=== PATIENT | male | born 1930 | race Caucasian/White ===

== ENCOUNTER 2018-02-19 20:48 | Inpatient (IN) | payer MEDICARE, MEDICAID ==
[~2018-02-19] VITALS: Ht 177.8 cm; Wt 68.0 kg
[2018-02-19] MEDS ORDERED: ACET325T53 PO (21:27)
[2018-02-19] MEDS ORDERED: DOCU100C36 PO (21:27)
[2018-02-19] MEDS ORDERED: ASPI81TA31 PO (21:27)
[2018-02-19] MEDS ORDERED: CHOL100062 PO (21:27)
[2018-02-19] MEDS ORDERED: MAGN400O6 PO (21:27)
[2018-02-19] MEDS ORDERED: TIOT18CA3 IH (21:27)
[2018-02-19] MEDS ORDERED: FAMO-132 PO (21:27)
[2018-02-19 21:34] LABS: BASOPHILS # (AUTO) 0.1 K/uL (0.0-8.0); BASOPHILS % (AUTO) 0.8 % (0.0-2.0); EOSINOPHILS # (AUTO) 0.3 K/uL (0.0-0.7); EOSINOPHILS % (AUTO) 3.3 % (0.0-7.0); HEMATOCRIT 30.9 % (36.7-47.1); HEMOGLOBIN 10.5 g/dL (12.5-16.3); LYMPHOCYTES # (AUTO) 1.8 K/uL (20.0-40.0); LYMPHOCYTES % (AUTO) 20.1 % (20.5-51.5); MEAN CORPUSCULAR HEMOGLOBIN 32.6 uug (23.8-33.4); MEAN CORPUSCULAR HGB CONC 34 g/dL (32.5-36.3); MONOCYTES # (AUTO) 0.8 K/uL (2.0-10.0); NEUTROPHILS # (AUTO) 5.9 K/uL (1.8-8.9); NEUTROPHILS % (AUTO) 66.8 % (38.5-71.5); PLATELET COUNT (AUTO) 282 K/uL (152-348); RED BLOOD CELL COUNT(AUTO) 3.22 MIL/uL (4.06-5.63); WHITE BLOOD COUNT (AUTO) 8.8 K/uL (3.6-10.2)
[2018-02-19 21:37] LABS: CARBON DIOXIDE 28 mmol/L (21-32); CHLORIDE 101 mmol/L (98-107); CREATININE 1.8 mg/dL (0.6-1.3); ETHANOL < 3 MG/DL (0-0); GLUCOSE 223 mg/dL (74-106); POTASSIUM 4.9 mmol/L (3.5-5.1); UREA NITROGEN, BLOOD 27 mg/dL (7-18)
[2018-02-19 21:43] LABS: ALANINE AMINOTRANSFERASE 11 U/L (16-63); ALKALINE PHOSPHATASE 123 U/L (50-136); ASPARTATE AMINOTRANSFERASE 9 U/L (15-37); BILIRUBIN,DIRECT 0.1 mg/dL (0.0-0.2); BILIRUBIN,TOTAL 0.2 mg/dL (0.2-1.0); TOTAL PROTEIN, SERUM 7.6 g/dL (6.4-8.2)
[2018-02-19 21:50] LABS: THYROID STIMULATING HORMONE 4.871 mIU/mL (0.358-3.740)
--- NOTE | 2018-02-19 23:00 | NUR ---
REPORT GIVEN TO ISABELLE MACIAS.
--- NOTE | 2018-02-19 23:16 | NUR ---
Pt. admitted to [facility], under care of Dr. ALBERTS Belongs List completed
--- NOTE | 2018-02-19 23:20 | NUR ---
Received report by phone from [place]/CORPORATE LAW ASSISTANT and got pt via [employer],no family's seen at this time.Pt's A/A/O x2,unable to tell his age,kept saying "I'm 65 years old".pt denied of any medical Hx and stated that"I have no emergency contact";per medical record;pt's a resident of [facility](pt's agitation and aggressive behavior at SNF. Pt had a conservator(David Segovia);per charge nurse stated that will endorse to AM shift to contact. Upon this time;pt's cooperative w/instruction,no combative was seen.Initial assessment's done and notified MD;carried out orders.safety render.assisted pt to change diaper,educated to pt in order to get urine exam,pt denied to give at this time and stated that"I want to sleep",kept comfort.continued monitoring to pt.bed alarm's on.
[2018-02-19] MEDS ORDERED: MAGNESIUM HYDROXIDE 30 ML LIQUID UDC PO PRN (23:30)
[2018-02-19] MEDS ORDERED: ACETAMINOPHEN 325 MG TABLET PO PRN (23:30)
[2018-02-19] MEDS ORDERED: CLONAZEPAM 0.5 MG TABLET PO SCH (23:30)
[2018-02-19] MEDS ORDERED: MAG HYDROX/AL HYDROX/SIMETH 30 ML LIQUID UDC PO PRN (23:30)
[2018-02-19] MEDS ORDERED: TEMAZEPAM 7.5 MG CAPSULE PO PRN (23:30)
[2018-02-19 23:45] VITALS: BP 112/64
[2018-02-19] MEDS ORDERED: IPRATROPIUM BROMIDE 0.5 MG/2.5 ML NEBU NEB PRN (23:45)
[2018-02-19] MEDS ORDERED: ALBUTEROL SULFATE 2.5 MG/3 ML NEBU NEB PRN (23:45)
[2018-02-20] MEDS ORDERED: MAG HYDROX/AL HYDROX/SIMETH 30 ML LIQUID UDC PO PRN (00:15)
[2018-02-20] MEDS ORDERED: ACETAMINOPHEN 325 MG TABLET PO PRN (00:15)
[2018-02-20] MEDS ORDERED: TEMAZEPAM 7.5 MG CAPSULE PO PRN (00:15)
[2018-02-20] MEDS ORDERED: MAGNESIUM HYDROXIDE 30 ML LIQUID UDC PO PRN (00:15)
[2018-02-20] MEDS ORDERED: LORAZEPAM 0.5 MG TABLET PO PRN (00:15)
--- NOTE | 2018-02-20 06:30 | NUR ---
Pt's comfortable on bed;denied of pain or any discomfort,he's able to sleep for 4.3 hours (since admission).no distress noted in the shift,pt remained free from injury and no aggressive or combative's seen.bed alarm's on.continued monitoring to pt.
[2018-02-20 07:00] LABS: BASOPHILS # (AUTO) 0.1 K/uL (0.0-8.0); BASOPHILS % (AUTO) 1.3 % (0.0-2.0); EOSINOPHILS # (AUTO) 0.4 K/uL (0.0-0.7); EOSINOPHILS % (AUTO) 5.6 % (0.0-7.0); HEMATOCRIT 31.4 % (36.7-47.1); HEMOGLOBIN 10.7 g/dL (12.5-16.3); LYMPHOCYTES # (AUTO) 1.8 K/uL (20.0-40.0); LYMPHOCYTES % (AUTO) 23.8 % (20.5-51.5); MEAN CORPUSCULAR HEMOGLOBIN 32.3 uug (23.8-33.4); MEAN CORPUSCULAR HGB CONC 34 g/dL (32.5-36.3); MONOCYTES # (AUTO) 0.8 K/uL (2.0-10.0); NEUTROPHILS # (AUTO) 4.5 K/uL (1.8-8.9); NEUTROPHILS % (AUTO) 59.3 % (38.5-71.5); PLATELET COUNT (AUTO) 269 K/uL (152-348); RED BLOOD CELL COUNT(AUTO) 3.31 MIL/uL (4.06-5.63); WHITE BLOOD COUNT (AUTO) 7.6 K/uL (3.6-10.2)
[2018-02-20 07:30] VITALS: BP 127/49
[2018-02-20 07:43] LABS: THYROID STIMULATING HORMONE 4.523 mIU/mL (0.358-3.740)
[2018-02-20 08:05] LABS: IRON, SERUM 45 ug/dL (50-175)
[2018-02-20] MEDS: DOCUSATE SODIUM 100 MG CAPSULE PO SCH (08:05)
[2018-02-20] MEDS: ASPIRIN 81 MG TAB.CHEW PO SCH (08:05)
[2018-02-20] MEDS: FAMOTIDINE 20 MG TABLET PO SCH (08:05)
[2018-02-20] MEDS: CHOLECALCIFEROL 1,000 UNIT TABLET PO SCH (08:05)
[2018-02-20 08:32] LABS: ALANINE AMINOTRANSFERASE 9 U/L (16-63); ALKALINE PHOSPHATASE 106 U/L (50-136); ASPARTATE AMINOTRANSFERASE 11 U/L (15-37); BILIRUBIN,TOTAL 0.3 mg/dL (0.2-1.0); CARBON DIOXIDE 28 mmol/L (21-32); CHLORIDE 105 mmol/L (98-107); CHOLESTEROL 201 mg/dL (<200); CREATININE 1.7 mg/dL (0.6-1.3); GLUCOSE 126 mg/dL (74-106); GLUCOSE FASTING 126 mg/dL (70-115); HDL CHOLESTEROL 50 mg/dL (40-60); MAGNESIUM 1.9 mg/dL (1.8-2.4); PHOSPHOROUS 2.9 mg/dL (2.5-4.9); POTASSIUM 4.7 mmol/L (3.5-5.1); TRIGLYCERIDES 86 MG/DL (30-150); UREA NITROGEN, BLOOD 23 mg/dL (7-18)
[2018-02-20] MEDS ORDERED: DEXTROSE 50% 50 ML DISP.SYRIN IV PRN (10:15)
[2018-02-20] MEDS: BLOOD SUGAR DIAGNOSTIC 1 EACH STRIP VI SCH ×3 (10:35→21:00)
[2018-02-20] MEDS: INSULIN REGULAR, HUMAN 300 UNIT/3 ML VIAL SQ PRN (11:04)
--- NOTE | 2018-02-20 12:00 | NUR ---
Firearms Report: GAUDENCIO completed and submitted [facility] Firearms Report on 02/20/18
[2018-02-20 15:02] VITALS: BP 78/50
[2018-02-20 15:30] VITALS: BP 97/52
[2018-02-20 20:00] VITALS: BP 122/72
[2018-02-20] MEDS: DIVALPROEX ER 250 MG TAB.SR.24H PO SCH (20:58)
[2018-02-20] MEDS: ATORVASTATIN 20 MG TABLET PO SCH (21:00)
--- NOTE | 2018-02-20 21:15 | NUR ---
Pt REFUSED ACCU CHECK AND ALL HS MEDICATIONS. Pt NOT RECEPTIVE TO TEACHING AT THIS TIME. Pt IS HOSTILE, LABILE, AGITATED, ANGRY, AND VERBALLY ABUSIVE TOWARD STAFF. HELP DESK CONSULTANT AWARE.
[2018-02-20 22:25] LABS: *AMPHETAMINE, URINE NEGATIVE (NEGATIVE); *BARBITURATE, URINE NEGATIVE (NEGATIVE); *CANNABINOID, URINE NEGATIVE (NEGATIVE); *COCCAINE, URINE NEGATIVE (NEGATIVE); *OPIATE, URINE NEGATIVE (NEGATIVE); *PHENCYCLIDINE SCREEN,URINE NEGATIVE (NEGATIVE)
[2018-02-20 22:28] LABS: *BILIRUBIN,URIN NEGATIVE (NEGATIVE); *BLOOD, URINE 1+ (NEGATIVE); *CLARITY,URINE CLEAR (CLEAR); *COLOR,URINE YELLOW (YELLOW); *KETONES,URINE NEGATIVE (NEGATIVE); *PROTEIN,URINE TRACE (NEGATIVE); *UROBILINOGEN,URINE 0.2 E.U./dl (NORMAL); LEUKOCYTE ESTERASE ,URINE NEGATIVE (NEGATIVE); NITRITE, URINE NEGATIVE (NEGATIVE); UGLUCOSE NEGATIVE (NEGATIVE)
[2018-02-20 22:48] LABS: BACTERIA,URINE NONE SEEN /HPF (NONE SEEN); MUCUS,URINE FEW /LPF (0-FEW); SQUAMOUS EPITHELIAL CELL,UR FEW /HPF (NONE SEEN); WBC,URINE 0-3 /HPF (0-3)
--- NOTE | 2018-02-21 06:59 | NUR ---
RECEIVED Pt AWAKE IN BED, Pt IMMEDIATELY BEGAN YELLING AT THIS SEWING TEACHER UPON ENTERING HIS GOOM. Pt WAS ANGRY, AGITATED, LABILE, AGGRESSIVE, AND VERBALLY ABUSIVE TO STAFF. Pt YELLED TO GET THE FUCK OUT OF MY ROOM YOU BITCH AND IM NOT TAKING ANYTHING FROM YOU WHEN MEDICATION WAS OFFERED, APPEARS PARANOID AND SUSPICIOUS OF STAFF AND MEDICATIONS. PRESENTS DISORIENTED, DISORGANIZED, AND CONFUSED. Pt WAS MUCH BRIGHTER THIS MORNING, AND POLITE, AGREEABLE TO HAVE HIS BOOLD GLUCOSE CHECKED, [address] DUKE NOTIFIED ABOUT ELEVATED TSH, WILL ENDORSE TO DAY SHIFT. VS STABLE, NO C/O PAIN. SLEPT 5.45 HOURS.
[2018-02-21] MEDS: BLOOD SUGAR DIAGNOSTIC 1 EACH STRIP VI SCH ×4 (07:04→20:09)
[2018-02-21 07:30] VITALS: BP 106/56
[2018-02-21] MEDS: ASPIRIN 81 MG TAB.CHEW PO SCH (09:01)
[2018-02-21] MEDS: DOCUSATE SODIUM 100 MG CAPSULE PO SCH (09:01)
[2018-02-21] MEDS: FAMOTIDINE 20 MG TABLET PO SCH (09:01)
[2018-02-21] MEDS: CHOLECALCIFEROL 1,000 UNIT TABLET PO SCH (09:02)
[2018-02-21] MEDS ORDERED: QUETIAPINE FUMARATE 25 MG TABLET PO PRN (11:00)
[2018-02-21] MEDS: INSULIN REGULAR, HUMAN 300 UNIT/3 ML VIAL SQ PRN (12:30)
--- NOTE | 2018-02-21 14:04 | NUR ---
Social Work Discharge Note: Nancy MEDIA RELATIONS MANAGER exercise science internship spoke with Rhiannon at [facility] [phone]. She is reluctant to accept pt. back. Bedhold expires on 02/26/18. company laundry worker may try to find alternative skilled placement but if she is not successful, [place] need to comply with state guidelines and accept pt. back. Message was left for public guardian Luisito Segovia [phone] at 1.30 pm. Kate santana MSW will follow up on her return.
[2018-02-21 15:03] VITALS: BP 103/50
[2018-02-21 20:00] VITALS: BP 144/68
[2018-02-21] MEDS: ATORVASTATIN 20 MG TABLET PO SCH (20:09)
[2018-02-21] MEDS: DIVALPROEX ER 250 MG TAB.SR.24H PO SCH (20:09)
[2018-02-21] MEDS: INSULIN REGULAR, HUMAN 300 UNITS/3 ML VIAL SQ PRN (20:11)
[2018-02-21] MEDS ORDERED: QUETIAPINE FUMARATE 25 MG TABLET PO SCH (21:00)
[2018-02-22] MEDS: BLOOD SUGAR DIAGNOSTIC 1 EACH STRIP VI SCH ×4 (06:42→21:04)
--- NOTE | 2018-02-22 06:42 | NUR ---
Pt REMAINS EXTREMELY LABILE AND AGGRESSIVE. SECURITY WAS CALLED SO STAFF COULD PERFORM ADLs. Pt POSTURES, ATTEMPTS TO STRIKE OUT, IS YELLING AND VERBALLY ABUSIVE. RESISTANT TO CARE, HOSTILE, AND UNPREDICTABLE. UNCOOPERATIVE WITH STAFF DIRECTION, REFUSES REDIRECTION. Pt CURRENTLY STANDING IN THE HALLWAY YELLING AND SCREAMING. UNABLE TO REDIRECT. WILL CONTINUE TO CLOSELY MONITOR. REQUIRES EXTENSIVE PROMPTING FOR MEDICATION COMPLIANCE. SHOWER GIVEN WITH ALL STAFF PRESENT. AM BG 97. SLEPT 8 HOURS.
[2018-02-22 07:30] VITALS: BP 110/65
[2018-02-22 07:59] LABS: BASOPHILS # (AUTO) 0.1 K/uL (0.0-8.0); BASOPHILS % (AUTO) 0.8 % (0.0-2.0); EOSINOPHILS # (AUTO) 0.5 K/uL (0.0-0.7); EOSINOPHILS % (AUTO) 4.9 % (0.0-7.0); HEMATOCRIT 33.7 % (36.7-47.1); HEMOGLOBIN 11.4 g/dL (12.5-16.3); LYMPHOCYTES # (AUTO) 1.7 K/uL (20.0-40.0); LYMPHOCYTES % (AUTO) 18.4 % (20.5-51.5); MEAN CORPUSCULAR HEMOGLOBIN 32.3 uug (23.8-33.4); MEAN CORPUSCULAR HGB CONC 34 g/dL (32.5-36.3); MEAN CORPUSCULAR VOLUME 95.8 fL (73.0-96.2); MONOCYTES # (AUTO) 0.9 K/uL (2.0-10.0); MONOCYTES % (AUTO) 9.4 % (0.0-11.0); NEUTROPHILS # (AUTO) 6.3 K/uL (1.8-8.9); NEUTROPHILS % (AUTO) 66.5 % (38.5-71.5); PLATELET COUNT (AUTO) 302 K/uL (152-348); RED BLOOD CELL COUNT(AUTO) 3.52 MIL/uL (4.06-5.63); WHITE BLOOD COUNT (AUTO) 9.4 K/uL (3.6-10.2)
[2018-02-22] MEDS: CHOLECALCIFEROL 1,000 UNIT TABLET PO SCH ×2 (08:08→10:00)
[2018-02-22] MEDS: DOCUSATE SODIUM 100 MG CAPSULE PO SCH ×2 (08:08→09:00)
[2018-02-22] MEDS: ASPIRIN 81 MG TAB.CHEW PO SCH ×2 (08:08→09:00)
[2018-02-22] MEDS: FAMOTIDINE 20 MG TABLET PO SCH ×2 (08:08→09:00)
[2018-02-22 08:18] LABS: ALANINE AMINOTRANSFERASE 11 U/L (16-63); ALKALINE PHOSPHATASE 111 U/L (50-136); ASPARTATE AMINOTRANSFERASE 13 U/L (15-37); BILIRUBIN,TOTAL 0.4 mg/dL (0.2-1.0); CARBON DIOXIDE 26 mmol/L (21-32); CHLORIDE 103 mmol/L (98-107); CREATININE 1.9 mg/dL (0.6-1.3); GLUCOSE 159 mg/dL (74-106); MAGNESIUM 1.9 mg/dL (1.8-2.4); PHOSPHOROUS 3.8 mg/dL (2.5-4.9); POTASSIUM 5.6 mmol/L (3.5-5.1); TOTAL PROTEIN, SERUM 7.9 g/dL (6.4-8.2); UREA NITROGEN, BLOOD 34 mg/dL (7-18)
--- NOTE | 2018-02-22 10:00 | NUR ---
Pt refused morning medications. Attempted x3 but continued to refuse. Pt stated "get out of here with that" repeatedly with each attempts. Explained risks and benefits of medication compliance however pt became more agitated. Will continue to monitor.
[2018-02-22] MEDS: INSULIN REGULAR, HUMAN 300 UNIT/3 ML VIAL SQ PRN ×2 (11:53→17:23)
--- NOTE | 2018-02-22 12:13 | NUR ---
Initial Discharge Plan: Pts address on face sheet is [address] [place] [address] and telephone # is . Per information found on 5150 report pt is a resident of [facility], [address] [place] [phone]; . SW contacted [facility] and spoke to Rhiannon from admissions who would prefer pt not return to facility "because he is a danger to others and is aggressive." Per Rhiannon, pt has a "bed hold" until the 9th of this month. SW will follow up with treating team, including pts Guardian, David Segovia in order to discharge pt appropriately. SW will help form a safe and proper discharge.
--- NOTE | 2018-02-22 12:26 | NUR ---
Discharge Planning: GAUDENCIO spoke to pts Guardian, David Segovia who stated that he faxed "letters of conservatorship" to fax # per [facility] request. Mr. Segovia also stated that he was asked to fax "consent for medical treatment" paperwork as well. SW will follow up to ensure all appropriate paperwork is received in a timely manner.
--- NOTE | 2018-02-22 15:11 | NUR ---
Gps/Medical Cost Consultant- Ambulates around with front wheel walker, safety reviewed and emphasized, monitor needs, Labile mood, conversant, making needs known to staff, needed prompting and constant redirections,
[2018-02-22 16:09] VITALS: BP 137/61
[2018-02-22 19:33] VITALS: BP 134/68
[2018-02-22] MEDS ORDERED: DIVALPROEX ER 250 MG TAB.SR.24H PO SCH (20:00)
[2018-02-22] MEDS: ATORVASTATIN 20 MG TABLET PO SCH (21:03)
[2018-02-22] MEDS: DIVALPROEX ER 500 MG TAB.SR.24H PO SCH (21:03)
[2018-02-22] MEDS: INSULIN REGULAR, HUMAN 300 UNITS/3 ML VIAL SQ PRN (21:05)
[2018-02-22] MEDS ORDERED: QUETIAPINE FUMARATE 25 MG TABLET PO SCH (22:00)
[2018-02-23] MEDS: BLOOD SUGAR DIAGNOSTIC 1 EACH STRIP VI SCH ×4 (06:45→21:00)
[2018-02-23 07:54] VITALS: BP 98/55
[2018-02-23] MEDS: ASPIRIN 81 MG TAB.CHEW PO SCH ×2 (08:45→08:56)
[2018-02-23] MEDS: CHOLECALCIFEROL 1,000 UNIT TABLET PO SCH ×2 (08:45→08:56)
[2018-02-23] MEDS: FAMOTIDINE 20 MG TABLET PO SCH ×2 (08:45→08:56)
[2018-02-23] MEDS: DOCUSATE SODIUM 100 MG CAPSULE PO SCH ×2 (08:45→08:56)
[2018-02-23] MEDS: INSULIN REGULAR, HUMAN 300 UNIT/3 ML VIAL SQ PRN ×3 (08:47→12:33)
--- NOTE | 2018-02-23 08:58 | NUR ---
PATIENT REFUSED ALL MEDS, INCLUDING INSULIN. WASTED IN PYXIS
[2018-02-23 09:21] LABS: ALANINE AMINOTRANSFERASE 12 U/L (16-63); ALKALINE PHOSPHATASE 119 U/L (50-136); ASPARTATE AMINOTRANSFERASE 9 U/L (15-37); BILIRUBIN,TOTAL 0.3 mg/dL (0.2-1.0); CARBON DIOXIDE 26 mmol/L (21-32); CHLORIDE 100 mmol/L (98-107); CREATININE 2.1 mg/dL (0.6-1.3); GLUCOSE 266 mg/dL (74-106); MAGNESIUM 1.7 mg/dL (1.8-2.4); PHOSPHOROUS 2.9 mg/dL (2.5-4.9); POTASSIUM 4.6 mmol/L (3.5-5.1); TOTAL PROTEIN, SERUM 7.8 g/dL (6.4-8.2); UREA NITROGEN, BLOOD 41 mg/dL (7-18)
[2018-02-23 09:37] LABS: BASOPHILS # (AUTO) 0.1 K/uL (0.0-8.0); BASOPHILS % (AUTO) 0.6 % (0.0-2.0); EOSINOPHILS # (AUTO) 0.4 K/uL (0.0-0.7); EOSINOPHILS % (AUTO) 2.8 % (0.0-7.0); HEMOGLOBIN 11.3 g/dL (12.5-16.3); LYMPHOCYTES # (AUTO) 1.3 K/uL (20.0-40.0); LYMPHOCYTES % (AUTO) 9.5 % (20.5-51.5); MEAN CORPUSCULAR HEMOGLOBIN 32.9 uug (23.8-33.4); MEAN CORPUSCULAR HGB CONC 34 g/dL (32.5-36.3); MEAN CORPUSCULAR VOLUME 96.2 fL (73.0-96.2); MONOCYTES # (AUTO) 1.2 K/uL (2.0-10.0); MONOCYTES % (AUTO) 8.8 % (0.0-11.0); NEUTROPHILS # (AUTO) 10.7 K/uL (1.8-8.9); NEUTROPHILS % (AUTO) 78.3 % (38.5-71.5); PLATELET COUNT (AUTO) 307 K/uL (152-348); RED BLOOD CELL COUNT(AUTO) 3.43 MIL/uL (4.06-5.63)
[2018-02-23 09:44] LABS: WHITE BLOOD COUNT (AUTO) 13.7 K/uL (3.6-10.2)
[2018-02-23] MEDS ORDERED: MAGNESIUM OXIDE 400 MG TABLET PO ONE (10:45)
--- NOTE | 2018-02-23 15:15 | NUR ---
paged mirella warren, awaiting reply in regards of the elevated wbc
--- NOTE | 2018-02-23 15:17 | NUR ---
discharge note: PT IS READY TO BE D/C. PT IS CALM AND COOPERATIVE. ALL SAFETY NEEDS ARE MET. PT IS CALM AND DENIES ANY HALLUCINATIONS. PT IS BEING D/C WITH DAUGHTER VIA PRIVATE CAR, BELONGINGS ARE GIVEN TO THE PT. PRESCRIPTIONS GIVEN TO PT. ALL SAFETY NEESD ARE MET. Addendum: 02/23/18 at 1653 by [facility] NURSEJONNA CHARTED IN A WRONG PATIENT.
[2018-02-23 15:53] VITALS: BP 98/53
[2018-02-23] MEDS: QUETIAPINE FUMARATE 25 MG TABLET PO SCH ×2 (17:00→21:49)
[2018-02-23] MEDS: DIVALPROEX ER 500 MG TAB.SR.24H PO SCH (20:49)
[2018-02-23] MEDS: ATORVASTATIN 20 MG TABLET PO SCH (20:49)
[2018-02-23] MEDS: INSULIN GLARGINE,HUM 300 UNITS/3 ML CARTRIDGE SQ SCH (21:00)
[2018-02-23 21:51] VITALS: BP 129/72
[2018-02-24] MEDS: BLOOD SUGAR DIAGNOSTIC 1 EACH STRIP VI SCH ×4 (06:55→21:56)
[2018-02-24 07:09] LABS: BASOPHILS # (AUTO) 0.1 K/uL (0.0-8.0); BASOPHILS % (AUTO) 0.5 % (0.0-2.0); EOSINOPHILS # (AUTO) 0.4 K/uL (0.0-0.7); EOSINOPHILS % (AUTO) 3.7 % (0.0-7.0); HEMATOCRIT 31.3 % (36.7-47.1); HEMOGLOBIN 10.6 g/dL (12.5-16.3); LYMPHOCYTES # (AUTO) 2.2 K/uL (20.0-40.0); LYMPHOCYTES % (AUTO) 22.9 % (20.5-51.5); MEAN CORPUSCULAR HEMOGLOBIN 31.9 uug (23.8-33.4); MEAN CORPUSCULAR HGB CONC 34 g/dL (32.5-36.3); MEAN CORPUSCULAR VOLUME 94.6 fL (73.0-96.2); MONOCYTES % (AUTO) 10.3 % (0.0-11.0); NEUTROPHILS % (AUTO) 62.6 % (38.5-71.5); PLATELET COUNT (AUTO) 277 K/uL (152-348); RED BLOOD CELL COUNT(AUTO) 3.31 MIL/uL (4.06-5.63); WHITE BLOOD COUNT (AUTO) 9.7 K/uL (3.6-10.2)
[2018-02-24 07:39] LABS: CARBON DIOXIDE 23 mmol/L (21-32); CHLORIDE 102 mmol/L (98-107); CREATININE 1.8 mg/dL (0.6-1.3); GLUCOSE 109 mg/dL (74-106); MAGNESIUM 1.9 mg/dL (1.8-2.4); POTASSIUM 4.2 mmol/L (3.5-5.1); UREA NITROGEN, BLOOD 44 mg/dL (7-18)
[2018-02-24 07:55] VITALS: BP 126/59
[2018-02-24] MEDS: ASPIRIN 81 MG TAB.CHEW PO SCH (08:53)
[2018-02-24] MEDS: CHOLECALCIFEROL 1,000 UNIT TABLET PO SCH (08:53)
[2018-02-24] MEDS: QUETIAPINE FUMARATE 25 MG TABLET PO SCH ×3 (08:53→21:52)
[2018-02-24] MEDS: DOCUSATE SODIUM 100 MG CAPSULE PO SCH (08:53)
[2018-02-24] MEDS: FAMOTIDINE 20 MG TABLET PO SCH (08:53)
[2018-02-24 15:38] VITALS: BP 133/53
[2018-02-24] MEDS: INSULIN REGULAR, HUMAN 300 UNIT/3 ML VIAL SQ PRN (16:49)
[2018-02-24 20:00] VITALS: BP 131/53
[2018-02-24] MEDS: ATORVASTATIN 20 MG TABLET PO SCH (21:52)
[2018-02-24] MEDS: DIVALPROEX ER 500 MG TAB.SR.24H PO SCH (21:53)
[2018-02-24] MEDS: INSULIN GLARGINE,HUM 300 UNITS/3 ML CARTRIDGE SQ SCH (21:56)
--- NOTE | 2018-02-25 05:57 | NUR ---
PATIENT SLEPT THROUGH NIGHT A TOTAL OF SEVEN AND A HALF HOURS WITHOUT SIGNS OF DISTRESS. CONTINUE TO MONITOR FOR SAFETY.
[2018-02-25] MEDS: BLOOD SUGAR DIAGNOSTIC 1 EACH STRIP VI SCH ×4 (06:42→20:22)
[2018-02-25 08:26] VITALS: BP 104/62
[2018-02-25] MEDS: ASPIRIN 81 MG TAB.CHEW PO SCH (08:41)
[2018-02-25] MEDS: FAMOTIDINE 20 MG TABLET PO SCH (08:41)
[2018-02-25] MEDS: QUETIAPINE FUMARATE 25 MG TABLET PO SCH ×3 (08:41→21:18)
[2018-02-25] MEDS: CHOLECALCIFEROL 1,000 UNIT TABLET PO SCH (08:41)
[2018-02-25] MEDS: DOCUSATE SODIUM 100 MG CAPSULE PO SCH (08:41)
[2018-02-25] MEDS: CEPHALEXIN MONOHYDRATE 250 MG CAPSULE PO SCH ×2 (15:47→22:00)
[2018-02-25 16:32] VITALS: BP 107/57
[2018-02-25] MEDS: INSULIN REGULAR, HUMAN 300 UNIT/3 ML VIAL SQ PRN (16:44)
[2018-02-25 20:00] VITALS: BP 136/73
[2018-02-25] MEDS: ATORVASTATIN 20 MG TABLET PO SCH (20:22)
[2018-02-25] MEDS: DIVALPROEX ER 500 MG TAB.SR.24H PO SCH (20:22)
[2018-02-25] MEDS: INSULIN REGULAR, HUMAN 300 UNITS/3 ML VIAL SQ PRN (20:29)
[2018-02-25] MEDS: INSULIN GLARGINE,HUM 300 UNITS/3 ML CARTRIDGE SQ SCH (20:30)
--- NOTE | 2018-02-25 20:30 | NUR ---
RECEIVED PATIENT IN THE HALLWAY AMBULATING WITH THE AID OF A FW WALKER. HE IS NOTED A/O X 2. EASILY IRRITABLE, YELLING AT TIMES; HE DENIES SI. HE IS ABLE TO COMPLY WITH MEDICATION REGIMENT AT THIS TIME. SAFETY EMPHASIS. WILL CONTINUE TO MONITOR.
[2018-02-25] MEDS ORDERED: CEPHALEXIN MONOHYDRATE 250 MG CAPSULE ONE (21:51)
--- NOTE | 2018-02-25 23:00 | NUR ---
PATIENT REFUSED KEFLEX 250MG PO. HE STATED, "I DON'T NEED IT, TAKE IT AWAY FROM ME." MULTIPLE REDIRECTION GIVEN, HOWEVER, INEFFECTIVE. WILL CONTINUE TO MONITOR.
[2018-02-26] MEDS: CEPHALEXIN MONOHYDRATE 250 MG CAPSULE PO SCH ×3 (06:26→21:04)
[2018-02-26] MEDS: BLOOD SUGAR DIAGNOSTIC 1 EACH STRIP VI SCH ×4 (06:33→20:55)
--- NOTE | 2018-02-26 07:30 | NUR ---
PATIENT INITIAL BGL THIS AM WAS 65. ORANGE JUICE WAS GIVEN AT APROX 6:45 AM. ATTEMPTED TO RECHECK BGL; HOWEVER, PATIENT REFUSED. MULTIPLE REDIRECTION GIVEN, YET INEFFECTIVE. WILL CONTINUE TO MONITOR.
[2018-02-26] MEDS: QUETIAPINE FUMARATE 25 MG TABLET PO SCH ×3 (10:16→21:04)
[2018-02-26] MEDS: ASPIRIN 81 MG TAB.CHEW PO SCH (10:16)
[2018-02-26] MEDS: CHOLECALCIFEROL 1,000 UNIT TABLET PO SCH (10:16)
[2018-02-26] MEDS: DOCUSATE SODIUM 100 MG CAPSULE PO SCH (10:16)
[2018-02-26] MEDS: FAMOTIDINE 20 MG TABLET PO SCH (10:16)
[2018-02-26 15:38] VITALS: BP 136/69
[2018-02-26] MEDS: DIVALPROEX 125 MG TABLET.DR PO SCH (15:48)
[2018-02-26] MEDS: INSULIN REGULAR, HUMAN 300 UNIT/3 ML VIAL SQ PRN (17:22)
[2018-02-26 20:44] VITALS: BP 153/78
[2018-02-26] MEDS: ATORVASTATIN 20 MG TABLET PO SCH (20:47)
[2018-02-26] MEDS: DIVALPROEX ER 500 MG TAB.SR.24H PO SCH (20:47)
[2018-02-26] MEDS: INSULIN REGULAR, HUMAN 300 UNITS/3 ML VIAL SQ PRN (20:57)
[2018-02-26] MEDS: INSULIN GLARGINE,HUM 300 UNITS/3 ML CARTRIDGE SQ SCH (20:57)
--- NOTE | 2018-02-26 22:00 | NUR ---
NURSING NOTE:A/O X2.ANXIOUS,RESTLESS,EASILY IRRITABLE AND ARGUMENTATIVE.TOOK PO HS MEDS WITH PROMPTING ACCUCHECK @ HS=58/59 MG/DL,HS SNACKS-TURKEY SANDWICHES,JUICE WITH SUGAR ADDED AND PUDDING WERE GIVEN.BUT PT REFUSED TO REPEAT/RECHECK ANOTHER ACCUCHECK-REGULAR INSULIN SS & LANTUS SQ HELD. .RESISTIVE WITH CARE-WAS SOAKING WET BUT DIDN'T WANT TO BE CHANGED,YELLED AND SCREAMED @ STAFF.SL.[place].WILL CONTINUE TO MONITOR.
[2018-02-27] MEDS: BLOOD SUGAR DIAGNOSTIC 1 EACH STRIP VI SCH ×4 (06:33→20:05)
[2018-02-27] MEDS: CEPHALEXIN MONOHYDRATE 250 MG CAPSULE PO SCH ×3 (06:33→21:02)
[2018-02-27] MEDS: DOCUSATE SODIUM 100 MG CAPSULE PO SCH (09:09)
[2018-02-27] MEDS: QUETIAPINE FUMARATE 25 MG TABLET PO SCH ×3 (09:10→21:02)
[2018-02-27] MEDS: FAMOTIDINE 20 MG TABLET PO SCH (09:10)
[2018-02-27] MEDS: DIVALPROEX 125 MG TABLET.DR PO SCH (09:10)
[2018-02-27] MEDS: ASPIRIN 81 MG TAB.CHEW PO SCH (09:11)
[2018-02-27] MEDS: CHOLECALCIFEROL 1,000 UNIT TABLET PO SCH (09:11)
[2018-02-27] MEDS: GLIMEPIRIDE 2 MG TABLET PO SCH (09:11)
--- NOTE | 2018-02-27 14:05 | NUR ---
Discharge Planning Note: GAUDENCIO spoke with patient's public guardian David Segovia [[phone]] to inform him that patient has been accepted at [facility] [ ]. David stated that he is agreeable to having patient go to [facility] upon discharge.
[2018-02-27 15:27] VITALS: BP 102/52
[2018-02-27 19:42] VITALS: BP 128/67
[2018-02-27] MEDS: ATORVASTATIN 20 MG TABLET PO SCH (20:05)
[2018-02-27] MEDS: DIVALPROEX ER 500 MG TAB.SR.24H PO SCH (20:05)
--- NOTE | 2018-02-27 21:00 | NUR ---
PATIENT IS NOTED A/O X 2. HE IS ABLE TO MAKE HIS NEEDS KNOWN AND ABLE TO AMBULATE WITH THE AID OF A FWW. HOWEVER, HE IS RESISTANCE TO USE THE FWW. SAFETY WAS EMPHASIS. HE IS NOTED EASILY IRRITABLE WHEN REDIRECTION GIVEN. LABILE MOOD, BLUNTED AFFECT NOTED. HE IS ABLE TO COMPLY WITH MEDICATION REGIMENT AT THIS TIME. SAFETY EMPHASIS TO USE HIS WALKER WHEN AMBULATING.
[2018-02-28] MEDS: CEPHALEXIN MONOHYDRATE 250 MG CAPSULE PO SCH ×3 (06:00→21:31)
[2018-02-28] MEDS: BLOOD SUGAR DIAGNOSTIC 1 EACH STRIP VI SCH ×4 (07:22→20:01)
[2018-02-28 07:30] VITALS: BP 146/65
[2018-02-28] MEDS: FAMOTIDINE 20 MG TABLET PO SCH (10:41)
[2018-02-28] MEDS: DIVALPROEX 125 MG TABLET.DR PO SCH (10:42)
[2018-02-28] MEDS: CHOLECALCIFEROL 1,000 UNIT TABLET PO SCH (10:42)
[2018-02-28] MEDS: DOCUSATE SODIUM 100 MG CAPSULE PO SCH (10:42)
[2018-02-28] MEDS: ASPIRIN 81 MG TAB.CHEW PO SCH (10:43)
[2018-02-28] MEDS: QUETIAPINE FUMARATE 25 MG TABLET PO SCH ×3 (10:43→21:32)
[2018-02-28] MEDS: GLIMEPIRIDE 2 MG TABLET PO SCH (10:44)
[2018-02-28 14:41] VITALS: BP 115/57
[2018-02-28] MEDS: DIVALPROEX ER 500 MG TAB.SR.24H PO SCH (20:01)
[2018-02-28] MEDS: ATORVASTATIN 20 MG TABLET PO SCH (20:01)
--- NOTE | 2018-02-28 20:30 | NUR ---
PATIENT IS NOTED A/O X 2. HE IS ABLE TO MAKE HIS NEEDS KNOWN AND ABLE TO AMBULATE WITH SLOW BUT STEADY GAIT WITH THE AID OF A FWW. PT IS NOTED EASILY IRRITABLE, PRESSURE SPEECH, LABILE MOOD, BLUNTED AFFECT NOTED. HE IS ABLE TO COMPLY WITH MEDICATION REGIMENT AT THIS TIME. SAFETY EMPHASIS TO CONTINUE USING HIS WALKER WHEN AMBULATING. WILL CONTINUE TO MONITOR CLOSELY.
[2018-02-28 21:44] VITALS: BP 127/65
[2018-03-01] MEDS: CEPHALEXIN MONOHYDRATE 250 MG CAPSULE PO SCH ×2 (06:43→13:46)
[2018-03-01] MEDS: BLOOD SUGAR DIAGNOSTIC 1 EACH STRIP VI SCH ×2 (06:49→11:34)
[2018-03-01 07:30] VITALS: BP 128/69
[2018-03-01] MEDS: INSULIN REGULAR, HUMAN 300 UNIT/3 ML VIAL SQ PRN ×2 (08:18→11:34)
[2018-03-01] MEDS: DIVALPROEX 125 MG TABLET.DR PO SCH (08:20)
[2018-03-01] MEDS: ASPIRIN 81 MG TAB.CHEW PO SCH (08:20)
[2018-03-01] MEDS: DOCUSATE SODIUM 100 MG CAPSULE PO SCH (08:20)
[2018-03-01] MEDS: FAMOTIDINE 20 MG TABLET PO SCH (08:20)
[2018-03-01] MEDS: CHOLECALCIFEROL 1,000 UNIT TABLET PO SCH (08:20)
[2018-03-01] MEDS: QUETIAPINE FUMARATE 25 MG TABLET PO SCH (08:20)
[2018-03-01] MEDS: GLIMEPIRIDE 2 MG TABLET PO SCH (08:20)
[2018-03-01] MEDS ORDERED: LIDOCAINE 5% PATCH TD SCH (09:00)
--- NOTE | 2018-03-01 10:01 | NUR ---
DC Note: Patient will be discharged to [facility] [[address] [place] [address]; ] via ambulance at 3pm. GAUDENCIO spoke with Eleuterio at [facility] to confirm discharge plans. Patient's public guardian David Segovia [[phone]] is aware and agreeable to discharge plans. GAUDENCIO left a voicemail with details of discharge plans for patient's public guardian. Patient will follow up with Dr. Pedraza (Psychiatrist) and Dr. Tyler Kelsey (Clean Up Supervisor) at the facility.
--- NOTE | 2018-03-01 16:44 | NUR ---
1645: DISCHARGED PT TO [facility] VIA AMBULANCE. DISCHARGE INSTRUCTIONS AND BELONGINGS GIVEN TO PATIENT. DENIES SI/HI. NOT IN ACUTE DISTRESS. REPORT GIVEN TO SERA AT THE FACILITY.
== END 2018-03-01 16:45 | DRG 885 ==
LOC: ER 20:53 → GPS 23:11
PROVIDERS: ADMIT Psychiatry & Neurology Psychosomatic Medicine; ATTEND Internal Medicine
DX: F25.9 Schizoaffective disorder, unspecified (principal); F01.51 Vascular dementia, unspecified severity, with behavioral disturbance; N18.3 Chronic kidney disease, stage 3 (moderate); N17.9 Acute kidney failure, unspecified; E11.65 Type 2 diabetes mellitus with hyperglycemia; E44.0 Moderate protein-calorie malnutrition; E11.22 Type 2 diabetes mellitus with diabetic chronic kidney disease; E11.51 Type 2 diabetes mellitus with diabetic peripheral angiopathy without gangrene; E83.42 Hypomagnesemia; R13.10 Dysphagia, unspecified; E87.1 Hypo-osmolality and hyponatremia; B35.1 Tinea unguium; F10.11 Alcohol abuse, in remission; M81.0 Age-related osteoporosis without current pathological fracture; M19.072 Primary osteoarthritis, left ankle and foot; M19.071 Primary osteoarthritis, right ankle and foot; E55.9 Vitamin D deficiency, unspecified; Z79.82 Long term (current) use of aspirin; E03.9 Hypothyroidism, unspecified; Z95.3 Presence of xenogenic heart valve; Z87.01 Personal history of pneumonia (recurrent); I69.919 Unspecified symptoms and signs involving cognitive functions following unspecified cerebrovascular disease; J44.9 Chronic obstructive pulmonary disease, unspecified; E78.00 Pure hypercholesterolemia, unspecified; E78.5 Hyperlipidemia, unspecified; Z68.21 Body mass index [BMI] 21.0-21.9, adult; D63.8 Anemia in other chronic diseases classified elsewhere; R60.0 Localized edema; Z72.0 Tobacco use; G89.29 Other chronic pain; M25.561 Pain in right knee
CPT/HCPCS: 36415; 71045; 80307; 83550; 83735; 84100; 84443; 85025; 85730; 87086; 93005; 93307; 94664; A4663; G0480; J1815; J3590